=== PATIENT | male | born 1960 | race Caucasian/White ===

== ENCOUNTER 2017-11-30 08:21 | Emergency (ER) | payer MEDICAID, MEDICARE ==
--- NOTE | 2017-11-30 09:11 | EDM.PDOC ---
ED HPI GENERAL MEDICAL PROBLEM - General Chief Complaint: ENT Problem Stated Complaint: LEFT EAR IS HURTING Time Seen by Provider: 11/30/17 09:07 Source of Information: Reports: Patient History Limitations: Reports: No Limitations - History of Present Illness INITIAL COMMENTS - FREE TEXT/NARRATIVE: Complains of swishing feeling in left ear for few weekds. Worse today. Hearing ok. Hurts today. hasn't seen doc Left Ear Pain Score (Numeric/FACES): 8 - Related Data Allergies Allergy/AdvReac Type Severity Reaction Status Date / Time No Known Allergies Allergy Verified 11/30/17 08:39 Home Meds: Home Meds Gabapentin [Neurontin] 2 tab PO TID 11/30/17 [History] Omeprazole 1 tab PO DAILY 11/30/17 [History] Tamsulosin HCl 1 tab PO DAILY 11/30/17 [History] Past Medical History HEENT History: Reports: Impaired Vision Other HEENT History: blind in right eye. Respiratory History: Reports: Pneumothorax, Other (See Below) Gastrointestinal History: Reports: GERD Musculoskeletal History: Reports: Back Pain, Chronic, Fracture Neurological History: Reports: Concussion - Past Surgical History HEENT Surgical History: Reports: Eye Surgery Cardiovascular Surgical History: Reports: Other (See Below) Other Cardiovascular Surgeries/Procedures: tumor around the heart, surgical removal Respiratory Surgical History: Reports: Lung Resection GI Surgical History: Reports: Ericka Fundoplication Musculoskeletal Surgical History: Reports: Other (See Below) Other Musculoskeletal Surgeries/Procedures:: plate in collar bone, pinky surgery. Social & Family History - Tobacco Use Smoking Status *Q: Heavy Tobacco Smoker Years of Tobacco use: 20 Packs/Tins Daily: 1 - Recreational Drug Use Recreational Drug Use: No ED ROS ENT - Review of Systems Review Of Systems: ROS reveals no pertinent complaints other than HPI. ED EXAM, ENT - Physical Exam Exam: See Below Exam Limited By: No Limitations General Appearance: Alert, WD/WN, No Apparent Distress Eye Exam: Bilateral Eye: Normal Inspection Ears: Normal External Exam, Hearing Grossly Normal, Normal TMs. No: Mastoid Swelling, Mastoid Tenderness Nose: Normal Inspection Mouth/Throat: Normal Inspection Head: Atraumatic Neck: Normal Inspection Course - Vital Signs Last Recorded V/S: Last Vital Signs Temp 35.3 C 11/30/17 08:38 Pulse 61 11/30/17 08:38 Resp 13 11/30/17 08:38 BP 131/86 11/30/17 08:38 Pulse Ox 100 11/30/17 08:38 - Re-Assessments/Exams Free Text/Narrative Re-Assessment/Exam: 11/30/17 09:09 He feels that since it is hurting today that it isw probably gettingh infected. Departure - Departure Time of Disposition: 09:10 Disposition: Home, Self-Care 01 Condition: Fair Clinical Impression: Ear pain, left - Discharge Information Referrals: PCP,None [Primary Care Provider] - Additional Instructions: Take amoxicilling 500 mg 3 times daily for [address] Fraser in a few days.
== END 2017-11-30 09:23 | disposition home or self-care (01) ==
LOC: JP.ED 08:21
DX: H92.02 Otalgia, left ear (principal); F17.210 Nicotine dependence, cigarettes, uncomplicated; K21.9 Gastro-esophageal reflux disease without esophagitis; Z79.899 Other long term (current) drug therapy
CPT/HCPCS: 99283

== ENCOUNTER → 2019-03-28 | Day surgery (SDC) | payer MEDICAID ==
[~2019-03-28] MED LIST: Dexamethasone 4 MG/ML SDV ONE; Glycopyrrolate 0.2 MG/ML 5 ML MDV ONE; Midazolam 1 MG/ML 2 ML SDV ONE; Neostigmine Methylsulfate 1 MG/ML 5 ML Syringe ONE; Propofol 200 MG/20 ML SDV ONE; Rocuronium 50 MG/5 ML Vial ONE; Sodium Chloride 0.9% 1,000 ML IV SCH; fentaNYL 100 MCG/2 ML SDV ONE
--- NOTE | 2019-03-28 14:17 | EDM.PDOC ---
ED HPI GENERAL MEDICAL PROBLEM - General Chief Complaint: Gastrointestinal Problem Stated Complaint: FOOD STUCH IN THROAT Time Seen by Provider: 03/28/19 13:55 Source of Information: Reports: Patient History Limitations: Reports: No Limitations - History of Present Illness INITIAL COMMENTS - FREE TEXT/NARRATIVE: 50-year-old male with esophageal impaction with meat since last night. He is unable to swallow his own saliva or water. This has happened to him several times in the past but it's always resolved within an hour. He has upper abdominal discomfort and some chest discomfort. No shortness of breath, denies fever or chills. Onset: Sudden Duration: Hour(s): (16 hours ago) Epigastric Pain Score (Numeric/FACES): 8 - Related Data Allergies Allergy/AdvReac Type Severity Reaction Status Date / Time No Known Allergies Allergy Verified 03/28/19 13:57 Home Meds: Home Meds Gabapentin [Neurontin] 2 tab PO TID 11/30/17 [History] Omeprazole 1 tab PO DAILY 11/30/17 [History] Tamsulosin HCl 1 tab PO DAILY 11/30/17 [History] Past Medical History HEENT History: Reports: Impaired Vision Other HEENT History: blind in right eye. Respiratory History: Reports: Pneumothorax, Other (See Below) Gastrointestinal History: Reports: GERD Musculoskeletal History: Reports: Back Pain, Chronic, Fracture Neurological History: Reports: Concussion - Past Surgical History HEENT Surgical History: Reports: Eye Surgery Cardiovascular Surgical History: Reports: Other (See Below) Other Cardiovascular Surgeries/Procedures: tumor around the heart, surgical removal Respiratory Surgical History: Reports: Lung Resection GI Surgical History: Reports: Ericka Fundoplication Musculoskeletal Surgical History: Reports: Other (See Below) Other Musculoskeletal Surgeries/Procedures:: plate in collar bone, pinky surgery. Social & Family History - Tobacco Use Smoking Status *Q: Current Every Day Smoker Years of Tobacco use: 30 Packs/Tins Daily: 1 - Caffeine Use Caffeine Use: Reports: Coffee, Soda - Recreational Drug Use Recreational Drug Use: No ED ROS GENERAL - Review of Systems Review Of Systems: See Below Constitutional: Reports: Malaise. Denies: Fever, Chills Respiratory: Denies: Shortness of Breath Cardiovascular: Reports: Chest Pain (Due to the esophageal foreign body). Denies: Palpitations GI/Abdominal: Reports: Abdominal Pain, Difficulty Swallowing, Nausea. Denies: Vomiting Skin: Reports: No Symptoms Neurological: Reports: No Symptoms. Denies: Dizziness Psychiatric: Reports: No Symptoms ED EXAM, GI/ABD - Physical Exam Exam: See Below Exam Limited By: No Limitations General Appearance: Alert, No Apparent Distress (Looks uncomfortable but not in distress) Eyes: Bilateral: Normal Appearance Head: Atraumatic Respiratory/Chest: No Respiratory Distress, Lungs Clear Cardiovascular: Regular Rate, Rhythm GI/Abdominal Exam: Soft, Non-Tender Neurological: Alert, Oriented Psychiatric: Normal Affect, Normal Mood Skin Exam: Warm, Dry Course - Vital Signs Last Recorded V/S: Last Vital Signs Temp 96.3 F 03/28/19 13:55 Pulse 81 03/28/19 13:55 Resp 20 03/28/19 13:55 BP 161/98 H 03/28/19 13:55 Pulse Ox 98 03/28/19 13:55 - Orders/Labs/Meds Orders: Active Orders 24 hr Category Date Time Status Patient Status [ADT] Routine ADT 03/28/19 14:17 Active Sodium Chloride 0.9% [Normal Saline] 1,000 ml Med 03/28/19 14:15 Active IV ASDIRECTED Medication Orders Sodium Chloride (Normal Saline) 1,000 mls @ 1,000 mls/hr IV ASDIRECTED FLAKITO Last Admin: 03/28/19 14:18 Dose: 1,000 mls/hr Meds: Medications Generic Name Dose Route Start Last Admin Trade Name Freq PRN Reason Stop Dose Admin Sodium Chloride 1,000 mls @ 1,000 mls/hr 03/28/19 14:15 03/28/19 14:18 Normal Saline IV 1,000 mls/hr ASDIRECTED FLAKITO Administration Discontinued Medications Generic Name Dose Route Start Last Admin Trade Name Freq PRN Reason Stop Dose Admin Dexamethasone Confirm 03/28/19 15:41 Dexamethasone Administered 03/28/19 15:42 Dose 8 mg .ROUTE .STK-MED ONE Fentanyl Confirm 03/28/19 14:34 Sublimaze Administered 03/28/19 14:35 Dose 100 mcg .ROUTE .STK-MED ONE Glycopyrrolate Confirm 03/28/19 14:55 Robinul Administered 03/28/19 14:56 Dose 1 mg .ROUTE .STK-MED ONE Midazolam HCl Confirm 03/28/19 14:34 Versed 1 Mg/Ml Administered 03/28/19 14:35 Dose 2 mg .ROUTE .STK-MED ONE Neostigmine Methylsulfate Confirm 03/28/19 14:55 Neostigmine Administered 03/28/19 14:56 Dose 5 mg .ROUTE .STK-MED ONE Propofol Confirm 03/28/19 14:34 Diprivan 20 Ml Administered 03/28/19 14:35 Dose 200 mg .ROUTE .STK-MED ONE Rocuronium [place] Confirm 03/28/19 14:40 Zemuron Administered 03/28/19 14:41 Dose 50 mg .ROUTE .STK-MED ONE - Re-Assessments/Exams Free Text/Narrative Re-Assessment/Exam: 03/28/19 14:16 Normal saline was started and the patient will be hydrated with [address] Wu, surgery, was consulted for an EGD. Departure - Departure Time of Disposition: 14:57 Disposition: DC/Tfer to Other 70 Clinical Impression: Esophageal foreign body Qualifiers: Encounter type: initial encounter Qualified Code(s): T18.108A - Unspecified foreign body in esophagus causing other injury, initial encounter - Discharge Information - My Orders Last 24 Hours: My Active Orders 03/28/19 14:15 Sodium Chloride 0.9% [Normal Saline] 1,000 ml IV ASDIRECTED 03/28/19 14:17 Patient Status [ADT] Routine - Assessment/Plan Last 24 Hours: My Active Orders 03/28/19 14:15 Sodium Chloride 0.9% [Normal Saline] 1,000 ml IV ASDIRECTED 03/28/19 14:17 Patient Status [ADT] Routine
--- NOTE | 2019-03-28 17:55 | OR ---
DATE OF PROCEDURE: 03/28/2019 SURGEON: Lionel Wu MD PREOPERATIVE DIAGNOSIS: Obstructing esophageal foreign body food. POSTOPERATIVE DIAGNOSIS: Obstructing esophageal foreign body food. PROCEDURE PERFORMED: Esophagogastroduodenoscopy with removal of obstructing esophageal foreign body. ANESTHESIA: General endotracheal. INDICATION: This 58-year-old male last night had a meal of what sounds like some kind of tortilla with shredded beef. He said he was really hungry, took go a large bolus in his mouth, swallowed, and it immediately became stuck in his upper esophagus. He suffered all night as it would not pass. He says this has happened in the past but it always passed. He presented to the emergency room today and request was made for upper endoscopy to relieve his obstruction. I counseled him for this including risks, alternatives, and gave his informed consent to proceed. PROCEDURE IN DETAIL: We started out with IV anesthesia. After adequate IV anesthesia was obtained with the patient in the left lateral decubitus position, the flexible fiberoptic upper endoscope was passed through his mouth into the upper esophagus, where we encountered a food bolus. As it was so close to the esophagus, we decided to convert to general endotracheal anesthesia. This was then done by the Anesthesia Service. We then spent about an hour and a half with multiple instruments trying to relieve his obstructions, involved biopsy forceps, tooth forceps, four-pronged forceps, various kinds of baskets and snares. We ultimately were able to remove the obstructing esophageal foreign body. We passed the scope down through the esophagus into the stomach and into the duodenum reaching its third portion, was slowly withdrawn examining the mucosa throughout. Otherwise, the mucosa appeared unremarkable. He is a smoker, but there was no evidence of any obstructing lesions of the esophagus that caused this. He is edentulous and did not obviously chew his food well. The scope was removed. He tolerated the procedure well. Lionel Wu MD /[id number]
== END ==
LOC: JP.ED 13:38 → JP.SDS 14:17
PROVIDERS: ATTEND Surgery
DX: T18.128A Food in esophagus causing other injury, initial encounter (principal); F17.200 Nicotine dependence, unspecified, uncomplicated
CPT/HCPCS: 96360; 99284-25; J1100; J2250; J2704; J2710; J3010; J3490; J7030

== ENCOUNTER 2020-05-05 15:51 | Emergency (ER) | payer MEDICAID | END 2020-05-05 16:31 | disposition left against medical advice (07) | LOC: JP.ED 15:51 | DX: Z53.21 Procedure and treatment not carried out due to patient leaving prior to being seen by health care provider (principal) ==

== ENCOUNTER 2024-09-29 20:21 | Emergency (ER) | payer MEDICARE, MEDICAID | END 2024-09-29 21:31 | disposition home or self-care (01) | LOC: JP.ED 20:21 | DX: Z53.21 Procedure and treatment not carried out due to patient leaving prior to being seen by health care provider (principal) ==

== ENCOUNTER 2024-09-30 08:22 | Emergency (ER) | payer MEDICARE, MEDICAID ==
[2024-09-30 09:19] LABS: BASOPHILS PERCENT AUTO 0.1 % (0.1-1.3); HEMOGLOBIN 15.9 g/dL (12.9-16.9); IMMATURE GRAN ABSOLUTE AUTO 0.05 K/uL (0.00-0.23); IMMATURE GRAN PERCENT AUTO 0.5 % (0.0-0.7); MONOCYTES PERCENT AUTO 8.6 % (3.3-12.6)
[2024-09-30 09:20] LABS: BASOPHILS ABSOLUTE AUTO 0.01 K/uL (0.00-0.10)
[2024-09-30 09:43] LABS: ALANINE AMINOTRANSFERASE,ALT 84 U/L (12-78); ALBUMIN 3.6 g/dL (3.4-5.0); ALKALINE PHOSPHATASE 86 U/L (46-116); ASPARTATE AMNIOTRANSFERASE,AST 63 U/L (15-37); BILIRUBIN TOTAL 2.2 mg/dL (0.2-1.0); BLOOD UREA NITROGEN,BUN 14 mg/dL (7-18); CARBON DIOXIDE,CO2 25 mmol/L (21-32); CHLORIDE,CL 99 mmol/L (100-108); CREATININE 1.1 mg/dL (0.8-1.3); EST CRCL DRUG DOSING (CG) 83.29 mL/min; ESTIMATED GFR 75 mL/min (>60); GLUCOSE RANDOM 153 mg/dL (74-106); POTASSIUM,K 3.6 mmol/L (3.6-5.2); PROTEIN TOTAL,TP 7.1 g/dL (6.4-8.2); SODIUM,NA 136 mmol/L (140-148); TROPONIN I HIGH SENSITIVITY 13.9 pg/mL (<=60.3)
[2024-09-30 09:48] LABS: EOSINOPHILS ABSOLUTE AUTO 0.02 K/uL (0.00-0.40); EOSINOPHILS PERCENT AUTO 0.2 % (0.0-5.4); HEMATOCRIT 41.6 % (38.4-49.7); LYMPHOCYTES ABSOLUTE AUTO 2.26 K/uL (0.8-3.3); LYMPHOCYTES PERCENT AUTO 23.7 % (11.4-47.7); MEAN CORPUSCULAR HEMOGLOBIN 33.4 pg (31.6-35.5); MEAN CORPUSCULAR HGB CONC 38.2 g/dL (31.6-35.5); MEAN CORPUSCULAR VOLUME 87.4 fL (81.4-99.0); MONOCYTES ABSOLUTE AUTO 0.82 K/uL (0.20-0.90); NEUTROPHILS ABSOLUTE AUTO 6.36 K/uL (1.0-7.6); NEUTROPHILS PERCENT AUTO 66.9 % (40.0-78.1); PLATELET COUNT,PLT 281 K/uL (130-375); RED BLOOD CELL COUNT 4.76 M/uL (4.14-5.76); WHITE BLOOD CELL COUNT,WBC 9.5 K/uL (3.2-11.0)
[2024-09-30 09:52] LABS: ANION GAP 15.6 mmol/L (5.0-14.0)
[2024-09-30] MEDS: Ibuprofen 400 MG Tab PO ONE (10:45)
[2024-09-30] MEDS: Diphtheria,Pertussis(Acell),Tetanus Vaccine 0.5 ML Syringe IM ONE (11:47)
== END 2024-09-30 11:46 | disposition home or self-care (01) ==
LOC: JP.ED 08:22
DX: S00.91XA Abrasion of unspecified part of head, initial encounter (principal); S02.85XA Fracture of orbit, unspecified, initial encounter for closed fracture; W19.XXXA Unspecified fall, initial encounter
CPT/HCPCS: 36415; 70450; 70486; 71046; 80053; 84484; 85025; 93005; 93010; 99284; A9270; 90471